=== PATIENT | female | born 1965 | race African-American/Black ===

== ENCOUNTER 2016-07-04 07:47 | Emergency (ER) | payer OTHER ==
[~2016-07-04] VITALS: Ht 160 cm; Wt 85.7 kg
[2016-07-04 07:48] VITALS: BP 127/96
[2016-07-04] MEDS ORDERED: NEURONTIN 300300 M1 PO (07:52)
[2016-07-04] MEDS ORDERED: NORVASC5 MG PO (07:53)
[2016-07-04] MEDS ORDERED: CYCLOBENZAPRINE5 MG PO (07:53)
[2016-07-04] MEDS ORDERED: HYDROCHLOROTH12.5 M1 PO (07:53)
[2016-07-04] MEDS ORDERED: NORCO 5-325 TA1 EACH PO (08:20)
== END 2016-07-04 08:25 | disposition home or self-care (01) ==
LOC: ER 07:47
DX: G89.29 Other chronic pain (principal); M54.5 Low back pain; Z88.8 Allergy status to other drugs, medicaments and biological substances